=== PATIENT | male | born 1975 | race Caucasian/White ===

== ENCOUNTER 2018-05-24 11:27 | Emergency (ER) | payer SELFPAY ==
[2018-05-24] MEDS ORDERED: Ketorolac Tromethamine 30 MG/ML VIAL ONE (11:50)
[2018-05-24] MEDS ORDERED: methylPREDNISolone Sod Succ/PF 125 MG/2 ML VIAL ONE (12:45)
--- NOTE | 2018-05-24 13:14 | RAD ---
3 VIEW LUMBAR SPINE SERIES: Date: 05/24/18 INDICATION: Low back pain. FINDINGS: There is no compression fracture or subluxation. Disc space heights are relatively well preserved. IMPRESSION: No acute osseous abnormality of the lumbar spine. POS: [facility]
[2018-05-24] MEDS ORDERED: Cyclobenzaprine 10 MG TAB ONE (15:48)
== END 2018-05-24 16:00 | disposition home or self-care (01) ==
LOC: NAV ERS 11:27
DX: S39.012A Strain of muscle, fascia and tendon of lower back, initial encounter (principal); F17.210 Nicotine dependence, cigarettes, uncomplicated; X58.XXXA Exposure to other specified factors, initial encounter
CPT/HCPCS: 72100; 96374; 96375; J1885; J2270; J2930